=== PATIENT | male | born 1950 | race Caucasian/White ===

== ENCOUNTER 2017-11-28 08:25 | Inpatient (IN) | payer MEDICARE ==
--- NOTE | 2017-11-28 08:52 | ER Document Report ---
ED General - General Chief Complaint: Fall Stated Complaint: FALL/FACE INJURY Time Seen by Provider: 11/28/17 08:39 Notes: 66-year-old male with a history of hypertension and polio presents to the ER after a fall this morning. The patient began having slurred speech yesterday morning and was not walking right. The patient took daughter to a doctor's appointment yesterday morning and could not drive his symptoms have progressed throughout the day with slurred speech and unable to control his legs and weakness and unable to stand. The patient states he is unable to get out his words and talk. He denies any numbness on the left. Denies chest pain denies shortness of breath denies headache or blurred vision. No history of strokes in the past. TRAVEL OUTSIDE OF THE [place] IN LAST 30 DAYS: No - Related Data Allergies/Adverse Reactions: No Known Allergies Allergy (Unverified 11/28/17 08:25) Past Medical History - Social History Smoking Status: Current Some Day Smoker Family History: CVA Review of Systems - Review of Systems Cardiovascular: denies: Chest pain Respiratory: denies: Cough, Short of breath Skin: denies: Rash Neurological/Psychological: Paralysis, Speech impairment, Numbness. denies: Confusion, Lost consciousness, Headaches -: Yes All other systems reviewed and negative Physical Exam - Vital signs Vitals: Temp Pulse Resp BP Pulse Ox 97.5 F 68 18 158/81 H 96 11/28/17 08:32 11/28/17 08:32 11/28/17 08:32 11/28/17 08:32 11/28/17 08:32 - Notes Notes: GENERAL_APPEARANCE: well_nourished, alert, cooperative VITALS: reviewed, see vital signs table. HEAD: no_swelling\tenderness on the head. EYES: PERRL, EOMI, conjunctiva_clear. NOSE: no_nasal_discharge. Abrasion dorsum of nose MOUTH: (-)decreased moisture. THROAT: no_tonsilar_inflammation, no_airway_obstruction. no_lymphadenopathy NECK: supple, no_neck_tenderness, (-)thyromegaly. BACK: no_back_tenderness. CHEST_WALL: no_chest_tenderness. LUNGS: no_wheezing, no_rales, no_rhonchi, (-)accessory muscle use, good air exchange bilateral. HEART: normal_rate, normal_rhythm, normal_S1, normal_S2, (-)S3, (-)S4, no_ murmur, no_rub. ABDOMEN: normal_BS, soft, no_abd_tenderness, (-)guarding, (-)rebound, no_ organomegaly, no_abd_masses. EXTREMITIES: No edema there is asymmetric size difference due to polio on the left. SKIN: warm, dry, good_color, no_rash. MENTAL_STATUS: speech_clear, oriented_X_3, normal_affect, responds_ appropriately to questions. NEURO: Pronator drift noted on the left arm and left leg drift, the patient has a history of polio on the left leg number this may be chronic, Neg Sensory Deficits on exam, CN 2-12 intact, DTR 2+ symmetric x 4, No cerbellar signs RESULT SUMMARY: 4 points NIH Stroke Scale INPUTS: 1A: Level of consciousness > 0 = Alert; keenly responsive 1B: Ask month and age > 0 = Both questions right 1C: 'Blink eyes' & 'squeeze hands' > 0 = Performs both tasks 2: Horizontal extraocular movements > 0 = Normal 3: Visual lynn > 0 = No visual loss 4: Facial palsy > 0 = Normal symmetry 5A: Left arm motor drift > 1 = Drift, but doesn't hit bed 5B: Right arm motor drift > 0 = No drift for 10 seconds 6A: Left leg motor drift > 1 = Drift, but doesn't hit bed --some chronic weakness due to polio 6B: Right leg motor drift > 0 = No drift for 5 seconds 7: Limb Ataxia > 0 = No ataxia 8: Sensation > 0 = Normal; no sensory loss 9: Language/aphasia > 1 = Mild-moderate aphasia: some obvious changes, without significant limitation 10: Dysarthria > 1 = Mild-moderate dysarthria: slurring but can be understood 11: Extinction/inattention > 0 = No abnormality Course - Re-evaluation Re-evalutation: The patient arrives with strokelike symptoms. The patient had symptoms yesterday morning. Unknown really when last normal the day before. He is out of the window for thrombolytics. He is not a candidate for thrombolytics due to this. We will get a CT of the head if negative will get a CTA to assess for large vessel occlusion patient is even approaching getting out of the window for neuro intervention greater than 24 hours. 11/28/17 11:05 We are now out of the window for intervention. We are greater than 24 hours of symptoms. CTA of the head and neck are ordered. The patient failed his swallow study and will be given aspirin rectally. Blood pressures been fairly reasonable and he will be admitted to the hospitalist service. - Vital Signs Vital signs: Temp Pulse Resp BP Pulse Ox 97.5 F 62 17 142/73 H 95 11/28/17 08:32 11/28/17 09:00 11/28/17 10:01 11/28/17 10:01 11/28/17 10:01 - Laboratory Result Diagrams: 11/28/17 08:43 11/28/17 08:43 Laboratory results interpreted by me: 11/28/17 11/28/17 11/28/17 08:43 08:43 08:44 WBC 58.4 H* RDW 14.5 H Seg Neuts % (Manual) 12 L Lymphocytes % (Manual) 84 H Monocytes % (Manual) 2 L Abs Lymphs (Manual) 49.1 H Abs Basophils (Manual) 1.2 H Glucose 121 H POC Glucose 115 H Creatine Kinase 240 H Discharge - Discharge Clinical Impression: Acute CVA (cerebrovascular accident) Condition: Fair Disposition: ADMITTED INPATIENT Admitting Provider: Hospitalist Unit Admitted: Telemetry Referrals: TAMIKA BONILLA MD [Primary Care Provider] - Follow up as needed
[2017-11-28 09:03] LABS: HEMATOCRIT 48.5 % (37.9-51.0); HEMOGLOBIN 15.8 g/dL (13.5-17.0); MEAN CORPUSCULAR HEMOGLOBIN 30.6 pg (27.0-33.4); MEAN CORPUSCULAR HGB CONC 32.7 g/dL (32.0-36.0); MEAN CORPUSCULAR VOLUME 94 fl (80-97); PLATELET COUNT 153 10^3/uL (150-450); RED BLOOD COUNT 5.18 10^6/uL (4.35-5.55); RED CELL DISTRIBUTION WIDTH 14.5 % (11.5-14.0)
[2017-11-28 09:04] LABS: PROTHROMBIN TIME 13.7 SEC (11.4-15.4)
[2017-11-28 09:05] LABS: PARTIAL THROMBOPLASTIN TIME 28.7 SEC (23.5-35.8)
[2017-11-28 09:13] LABS: WHITE BLOOD COUNT 58.4 10^3/uL (4.0-10.5)
[2017-11-28 09:19] LABS: ALANINE AMINOTRANSFERASE 31 U/L (21-72); ALBUMIN 4.4 g/dL (3.5-5.0); ALKALINE PHOSPHATASE 57 U/L (38-126); ANION GAP 15 (5-19); ASPARTATE AMINO TRANSFERASE 30 U/L (17-59); BILIRUBIN,DIRECT 0.3 mg/dL (0.0-0.4); BILIRUBIN,TOTAL 0.9 mg/dL (0.2-1.3); BLOOD UREA NITROGEN 17 mg/dL (7-20); CALCIUM 9.6 mg/dL (8.4-10.2); CARBON DIOXIDE 26 mmol/L (22-30); CHLORIDE 103 mmol/L (98-107); CREATINE KINASE 240 U/L (55-170); GLUCOSE 121 mg/dL (75-110); POTASSIUM 4.4 mmol/L (3.6-5.0)
--- NOTE | 2017-11-28 09:19 | RADIOLOGY REPORT (SQ) ---
EXAM DESCRIPTION: CT HEAD WITHOUT COMPLETED DATE/TIME: 11/28/2017 9:09 am REASON FOR STUDY: Stroke left side weakness slurred speech COMPARISON: None. TECHNIQUE: Axial images acquired through the brain without intravenous contrast. Images reviewed wi th bone, brain and subdural windows. Additional sagittal and coronal reconstructions were generated. Images stored on PACS. All CT scanners at this facility use dose modulation, iterative reconstruction, and/or weight based d osing when appropriate to reduce radiation dose to as low as reasonably achievable (ALARA). [facility]: Dose Right [facility]: CareDose [facility]: Dose Right [facility]: Teradose 4D [facility]: [employer] RADIATION DOSE: CT Rad equipment meets quality standard of care and radiation dose reduction techniq ues were employed. CTDIvol: 53.2 mGy. DLP: 1044 mGy-cm. mGy. LIMITATIONS: None. FINDINGS: VENTRICLES: Normal size and contour. CEREBRUM: Old encephalomalacia in the anterior right frontal lobe axial images 19-23. Multiple lacun ar infarcts in the bilateral basal ganglia. Spotty chronic bifrontal and biparietal deep periventric ular white matter low attenuation from small vessel disease. No CT evidence of acute large territory ischemic change, acute intracranial hemorrhage, mass effect, or midline shift. CEREBELLUM: No masses. No hemorrhage. No alteration of density. No evidence for acute infarction. EXTRAAXIAL SPACES: No fluid collections. No masses. ORBITS AND GLOBE: No intra- or extraconal masses. Normal contour of globe without masses. CALVARIUM: No fracture. PARANASAL SINUSES: No fluid or mucosal thickening. SOFT TISSUES: No mass or hematoma. OTHER: No other significant finding. IMPRESSION: No acute findings. Old white matter chronic small vessel disease and bilateral basal ganglia infarcts. Old right fronta l cortical and subcortical white matter infarct. EVIDENCE OF ACUTE STROKE: NO. COMMENT: Quality ID # 436: Final reports with documentation of one or more dose reduction techniques (e.g., Automated exposure control, adjustment of the mA and/or kV according to patient size, use of iterative reconstruction technique) TECHNICAL DOCUMENTATION: JOB ID: [id number] [employer]- All Rights Reserved Reading location - IP/workstation name: [facility]
[2017-11-28 09:22] LABS: ABSOLUTE LYMPHOCYTES# (MANUAL) 49.1 10^3/uL (0.5-4.7); ABSOLUTE MONOCYTES # (MANUAL) 1.2 10^3/uL (0.1-1.4); BASOPHILS % (MANUAL) 2 % (0-2); EOSINOPHILS % (MANUAL) 0 % (0-6); HYPOCHROMASIA SLIGHT; LYMPHOCYTES % (MANUAL) 84 % (13-45); MONOCYTES % (MANUAL) 2 % (3-13); PLATELET COMMENT ADEQUATE; SEGMENTED NEUTROPHILS % (MAN) 12 % (42-78); SMUDGE CELLS PRESENT; TOTAL CELLS COUNTED 100
[2017-11-28 09:31] LABS: CREATINE KINASE MB 4.45 ng/mL (<4.55)
[2017-11-28 09:32] LABS: TROPONIN I < 0.012 ng/mL
[2017-11-28] MEDS ORDERED: ASPIRIN 81 MG TABLET, CHEWABLE PO ONE (09:32)
--- NOTE | 2017-11-28 09:37 | RADIOLOGY REPORT (SQ) ---
EXAM DESCRIPTION: CT CERVICAL SPINE WITHOUT COMPLETED DATE/TIME: 11/28/2017 9:09 am REASON FOR STUDY: fall COMPARISON: None. TECHNIQUE: Axial images acquired through the cervical spine without intravenous contrast. Images re viewed with lung, soft tissue and bone windows. Reconstructed coronal and sagittal MPR images review ed. Images stored on PACS. All CT scanners at this facility use dose modulation, iterative reconstruction, and/or weight based d osing when appropriate to reduce radiation dose to as low as reasonably achievable (ALARA). [facility]: Dose Right [facility]: CareDose [facility]: Dose Right [facility]: Teradose 4D [facility]: [employer] RADIATION DOSE: CT Rad equipment meets quality standard of care and radiation dose reduction techniq ues were employed. CTDIvol: 17.9 mGy. DLP: 329 mGy-cm. mGy. LIMITATIONS: None. FINDINGS: ALIGNMENT: Anatomic. MINERALIZATION: Normal. VERTEBRAL BODIES: No fractures or dislocation. DISCS: Multilevel disc space narrowing with osteophytes. At C3-4, no central stenosis, moderate righ t, mild left foraminal narrowing. At C4-5, borderline central canal narrowing, moderate bilateral foraminal narrowing. At C5-6, borderline central canal narrowing, high-grade bilateral foraminal narrowing. At C6-7, and C7-T1, no central or foraminal stenosis. FACETS, LATERAL MASSES, POSTERIOR ELEMENTS: Facet arthropathy. No fractures. No dislocation. No ac rodrigo findings. HARDWARE: None in the spine. VISUALIZED RIBS: No fractures. LUNG APICES AND SOFT TISSUES: No significant or acute findings. OTHER: No other significant finding. IMPRESSION: CHRONIC DEGENERATIVE CHANGES. NO ACUTE FINDINGS. TECHNICAL DOCUMENTATION: JOB ID: [id number] Quality ID # 436: Final reports with documentation of one or more dose reduction techniques (e.g., Au tomated exposure control, adjustment of the mA and/or kV according to patient size, use of iterative reconstruction technique) 2010 [employer]- All Rights Reserved Reading location - IP/workstation name: [email or web address]
--- NOTE | 2017-11-28 09:38 | RADIOLOGY REPORT (SQ) ---
EXAM DESCRIPTION: CHEST SINGLE VIEW COMPLETED DATE/TIME: 11/28/2017 9:20 am REASON FOR STUDY: Stroke left side weakness slurred speech COMPARISON: None. EXAM PARAMETERS: NUMBER OF VIEWS: One view. TECHNIQUE: Single frontal radiographic view of the chest acquired. RADIATION DOSE: NA LIMITATIONS: None. FINDINGS: LUNGS AND PLEURA: No opacities, masses or pneumothorax. No pleural effusion. MEDIASTINUM AND HILAR STRUCTURES: No masses. Contour normal. HEART AND VASCULAR STRUCTURES: Heart normal in size. Normal vasculature. BONES: No acute changes. Old healed left lateral rib fractures HARDWARE: None in the chest. OTHER: No other significant finding. IMPRESSION: NO ACUTE RADIOGRAPHIC FINDING IN THE CHEST. TECHNICAL DOCUMENTATION: JOB ID: [id number] [employer]- All Rights Reserved Reading location - IP/workstation name: [email or web address]
[2017-11-28] MEDS ORDERED: ASPIRIN 300 MG SUPP, RECTAL PR ONE (10:30)
[2017-11-28] MEDS ORDERED: ONDANSETRON HCL INJ/PF 4 MG/2 ML SDV IV PRN (11:05)
[2017-11-28] MEDS ORDERED: ACETAMINOPHEN 650 MG SUPP.RECT PR PRN (11:05)
[2017-11-28] MEDS ORDERED: HYDROMORPHONE HCL INJ/PF 2 MG/ML AMPULE IV PRN (11:38)
--- NOTE | 2017-11-28 12:00 | RADIOLOGY REPORT (SQ) ---
EXAM DESCRIPTION: CTA NECK; CTA HEAD COMPLETED DATE/TIME: 11/28/2017 11:24 am REASON FOR STUDY: stroke left weakness COMPARISON: CT cervical spine 11/28/2017 CT brain without contrast 11/28/2017 TECHNIQUE: Axial dynamic scanning technique with dynamic contrast enhancement through the extra-aircraft maintenance technician nial and intracranial carotid and vertebral arteries. Multiplanar reconstruction. 3-D MIPS and Vol ume-rendered images acquired at the workstation and saved to PACS. Images are reviewed in soft tis jesus, bone, lung windows. All CT scanners at this facility use dose modulation, iterative reconstruction, and/or weight based d osing when appropriate to reduce radiation dose to as low as reasonably achievable (ALARA). [facility]: Dose Right [facility]: CareDose [facility]: Dose Right [facility]: Teradose 4D [facility]: [employer] CONTRAST TYPE AND DOSE: contrast/concentration: Isovue 370.00 mg/ml; Total Contrast Delivered: 70.0 ml; Total Saline Delivered: 75.0 ml RENAL FUNCTION: Creatinine 0.72 LIMITATIONS: None. FINDINGS: AORTIC ARCH: Normal three-vessel origin. Bilateral subclavian arteries are patent. No d issection. RIGHT CERVICAL CAROTIDS: Patent common, internal and external carotid arteries without suggestion of significant stenosis or irregular plaque. No dissection. RIGHT CERVICAL VERTEBRAL: Patent. No dissection. LEFT CERVICAL CAROTIDS: Patent common, internal and external carotid arteries without suggestion of s ignificant stenosis or irregular plaque. No dissection. LEFT CERVICAL VERTEBRAL: Diffusely small, an anatomic variant. The high cervical left vertebral mattie ry is occluded INTRACRANIAL CIRCULATION: There is bilateral heavy atherosclerotic change of the parasellar carotid arteries with a least moderate parasellar carotid artery stenosis bilaterally. The para clinoid ICAs, bilateral anterior and middle cerebral arteries, bilateral posterior cerebral arteries are patent. On the right side, the distal cervical vertebral artery and intracranial vertebral artery is patent p roviding in flow to the basilar artery. On the left side, there is retrograde filling of a short seg ment of the distal left intracranial vertebral artery. Left vertebral artery as it enters the skull is occluded. This is likely chronic. Faint collateral filling of the left anterior inferior cerebel lar artery is seen. BRAIN: Again, an old right frontal cortical infarct is present, with multiple small lacune is in the basal ganglia and right and left thalamus. OTHER: 3-D reconstructions confirm findings. These results were discussed with Dr. Joiner in the emergency room. IMPRESSION: No carotid bifurcations significant stenosis Diffusely small left vertebral artery with short segment of occlusion at the high cervical/proximal i ntracranial region. This is likely chronic Heavy atherosclerotic calcification with at least 50% narrowing of the bilateral parasellar internal carotid arteries. COMMENT: Quality ID #[id number]: Measurements of distal internal carotid diameter were used as the denomina tor for stenosis measurement. TECHNICAL DOCUMENTATION: JOB ID: [id number] Quality ID # [id number]: Final reports with documentation of one or more dose reduction techniques (e.g., Au tomated exposure control, adjustment of the mA and/or kV according to patient size, use of iterative reconstruction technique) 2010 [employer] All Rights Reserved Reading location - IP/workstation name: [email or web address]
--- NOTE | 2017-11-28 12:00 | RADIOLOGY REPORT (SQ) ---
EXAM DESCRIPTION: CTA NECK; CTA HEAD COMPLETED DATE/TIME: 11/28/2017 11:24 am REASON FOR STUDY: stroke left weakness COMPARISON: CT cervical spine 11/28/2017 CT brain without contrast 11/28/2017 TECHNIQUE: Axial dynamic scanning technique with dynamic contrast enhancement through the extra-aviation technician aircraft nial and intracranial carotid and vertebral arteries. Multiplanar reconstruction. 3-D MIPS and Vol ume-rendered images acquired at the workstation and saved to PACS. Images are reviewed in soft tis jesus, bone, lung windows. All CT scanners at this facility use dose modulation, iterative reconstruction, and/or weight based d osing when appropriate to reduce radiation dose to as low as reasonably achievable (ALARA). [facility]: Dose Right [facility]: CareDose [facility]: Dose Right [facility]: Teradose 4D [facility]: [employer] CONTRAST TYPE AND DOSE: contrast/concentration: Isovue 370.00 mg/ml; Total Contrast Delivered: 70.0 ml; Total Saline Delivered: 75.0 ml RENAL FUNCTION: Creatinine 0.72 LIMITATIONS: None. FINDINGS: AORTIC ARCH: Normal three-vessel origin. Bilateral subclavian arteries are patent. No d issection. RIGHT CERVICAL CAROTIDS: Patent common, internal and external carotid arteries without suggestion of significant stenosis or irregular plaque. No dissection. RIGHT CERVICAL VERTEBRAL: Patent. No dissection. LEFT CERVICAL CAROTIDS: Patent common, internal and external carotid arteries without suggestion of s ignificant stenosis or irregular plaque. No dissection. LEFT CERVICAL VERTEBRAL: Diffusely small, an anatomic variant. The high cervical left vertebral mattie ry is occluded INTRACRANIAL CIRCULATION: There is bilateral heavy atherosclerotic change of the parasellar carotid arteries with a least moderate parasellar carotid artery stenosis bilaterally. The para clinoid ICAs, bilateral anterior and middle cerebral arteries, bilateral posterior cerebral arteries are patent. On the right side, the distal cervical vertebral artery and intracranial vertebral artery is patent p roviding in flow to the basilar artery. On the left side, there is retrograde filling of a short seg ment of the distal left intracranial vertebral artery. Left vertebral artery as it enters the skull is occluded. This is likely chronic. Faint collateral filling of the left anterior inferior cerebel lar artery is seen. BRAIN: Again, an old right frontal cortical infarct is present, with multiple small lacune is in the basal ganglia and right and left thalamus. OTHER: 3-D reconstructions confirm findings. These results were discussed with Dr. Joiner in the emergency room. IMPRESSION: No carotid bifurcations significant stenosis Diffusely small left vertebral artery with short segment of occlusion at the high cervical/proximal i ntracranial region. This is likely chronic Heavy atherosclerotic calcification with at least 50% narrowing of the bilateral parasellar internal carotid arteries. COMMENT: Quality ID #195: Measurements of distal internal carotid diameter were used as the denomina tor for stenosis measurement. TECHNICAL DOCUMENTATION: JOB ID: [id number] Quality ID # 436: Final reports with documentation of one or more dose reduction techniques (e.g., Au tomated exposure control, adjustment of the mA and/or kV according to patient size, use of iterative reconstruction technique) 2010 [employer]- All Rights Reserved Reading location - IP/workstation name: [email or web address]
--- NOTE | 2017-11-28 12:13 | PDOC H&P ---
History of Present Illness Admission Date/PCP: TAMIKA BONILLA MD History of Present Illness: MELODY MCCOY is a 66 year old male presented to the ED after a fall this morning. The patient began having slurred speech yesterday morning and was not walking right. The patient took daughter to a doctor's appointment yesterday morning and could not drive. His had to drive. His symptoms progressed throughout the day with slurred speech and unable to control his legs and weakness and unable to stand. He did not take his regular antihypertensive medications on Monday and Monday since ran short. His blood pressure was checked on Monday and was 197/86. Patient smokes one pack of cigarettes daily and he used to smoke a lot more. When he fell there was no loss of consciousness. Patient has a history of polio which affected both legs but more on the left. There is no history of diabetes. Has history of leukemia which is being monitored by his PCP. Due to patient's presentation he was deemed not to be a candidate for thrombolysis. He was administered aspirin rectally since failed swallowing check. The hospitalist service was consulted and prompted to admit. Past Medical History Cardiac Medical History: Reports: Hypertension Pulmonary Medical History: Reports: Chronic Obstructive Pulmonary Disease (COPD) EENT Medical History: Reports: None Neurological Medical History: Reports: None Endocrine Medical History: Reports: None Renal/ Medical History: Reports: None Malignancy Medical History: Reports: None GI Medical History: Reports: None Musculoskeltal Medical History: Reports: None Skin Medical History: Reports: None Psychiatric Medical History: Reports: Tobacco Dependency Traumatic Medical History: Reports: None Hematology: Reports: None Infectious Medical History: Reports: None Past Surgical History Past Surgical History: Reports: None Social History Smoking Status: Current Some Day Smoker Cigarettes Packs Per Day: 1 Frequency of Alcohol Use: Rare Hx Recreational Drug Use: No Drugs: None Hx Prescription Drug Abuse: Yes Family History Family History: CVA Parental Family History Reviewed: Yes Children Family History Reviewed: Yes Sibling(s) Family History Reviewed.: Yes Medication/Allergy Allergies/Adverse Reactions: No Known Allergies Allergy (Unverified 11/28/17 08:25) Review of Systems ROS unobtainable: Due to mental status Physical Exam Vital Signs: Temp Pulse Resp BP Pulse Ox 97.5 F 62 17 142/73 H 95 11/28/17 08:32 11/28/17 09:00 11/28/17 10:01 11/28/17 10:01 11/28/17 10:01 Intake & Output 11/27/17 11/28/17 11/29/17 06:59 06:59 06:59 Weight 64.6 kg General appearance: PRESENT: cooperative, hard of hearing, thin Head exam: PRESENT: atraumatic, normocephalic Eye exam: PRESENT: conjunctiva pink, EOMI, PERRLA Ear exam: PRESENT: normal external ear exam Mouth exam: PRESENT: moist Teeth exam: PRESENT: poor dentation Neck exam: PRESENT: full ROM. ABSENT: carotid bruit, JVD, lymphadenopathy, tenderness, thyromegaly Respiratory exam: PRESENT: clear to auscultation roman Cardiovascular exam: PRESENT: RRR. ABSENT: diastolic murmur, systolic murmur Vascular exam: PRESENT: normal capillary refill GI/Abdominal exam: PRESENT: normal bowel sounds, soft. ABSENT: tenderness Extremities exam: PRESENT: other - left leg is shorter than right leg Musculoskeletal exam: ABSENT: ambulatory Neurological exam: PRESENT: alert, awake, aphasic - there is left sided weakness Skin exam: PRESENT: abrasion - to nose bridge, other Results Laboratory Results: 11/28/17 08:43 11/28/17 08:43 11/28/17 11/28/17 08:43 08:43 WBC 58.4 H* RBC 5.18 Hgb 15.8 Hct 48.5 MCV 94 MCH 30.6 MCHC 32.7 RDW 14.5 H Plt Count 153 Seg Neutrophils % Not Reportable Lymphocytes % Not Reportable Monocytes % Not Reportable Eosinophils % Not Reportable Basophils % Not Reportable Absolute Neutrophils Not Reportable Absolute Lymphocytes Not Reportable Absolute Monocytes Not Reportable Absolute Eosinophils Not Reportable Absolute Basophils Not Reportable Sodium 144.0 Potassium 4.4 Chloride 103 Carbon Dioxide 26 Anion Gap 15 BUN 17 Creatinine 0.72 Est GFR ( Amer) > 60 Est GFR (Non-Af Amer) > 60 Glucose 121 H Calcium 9.6 Total Bilirubin 0.9 AST 30 ALT 31 Alkaline Phosphatase 57 Total Protein 7.0 Albumin 4.4 11/28/17 11/28/17 08:43 08:43 Creatine Kinase 240 H CK-MB (CK-2) 4.45 Troponin I < 0.012 Impressions: Chest X-Ray 11/28/17 08:46 IMPRESSION: NO ACUTE RADIOGRAPHIC FINDING IN THE CHEST. Head CT 11/28/17 08:46 IMPRESSION: No acute findings. Old white matter chronic small vessel disease and bilateral basal ganglia infarcts. Old right frontal cortical and subcortical white matter infarct. EVIDENCE OF ACUTE STROKE: NO. Cervical Spine CT 11/28/17 08:52 IMPRESSION: CHRONIC DEGENERATIVE CHANGES. NO ACUTE FINDINGS. Assessment & Plan - Diagnosis (1) Acute CVA (cerebrovascular accident) Is this a current diagnosis for this admission?: Yes Plan: Will order MRI of brain, Carotid Doppler and echocardiogram. Order PT/OT and speech therapy. Family aware he will need rehab. Continue aspirin 300 mgs suppository and will start Lipitor once swallowing gets cleared. Family and patient made aware about presence on old infarcts in current CT of brain. Life style modification had been encouraged including quitting smoking. (2) HTN (hypertension) Qualifiers: Hypertension type: essential hypertension Qualified Code(s): I10 - Essential (primary) hypertension Is this a current diagnosis for this admission?: Yes Plan: Will allow for permissive high blood pressure and anticipate to start antihypertensive medications in AM. (3) Tobacco abuse Is this a current diagnosis for this admission?: Yes Plan: Order nicotine patch. Educated about nicotine toxic effects including heart attack, stroke, cancer, emphysema, etc.. (4) History of poliomyelitis Is this a current diagnosis for this admission?: Yes Plan: Supportive - Time Time Spent: 30 to 50 Minutes Medications reviewed and adjusted accordingly: Yes Anticipated discharge: Acute Rehab Within: within 48 hours - Inpatient Certification Based on my medical assessment, after consideration of the patient's comorbidities, presenting symptoms, or acuity I expect that the services needed warrant INPATIENT care.: Yes I certify that my determination is in accordance with my understanding of Medicare's requirements for reasonable and necessary INPATIENT services [42 CFR 412.3e].: Yes Medical Necessity: Significant Comorbidiites Make Outpatient Treatment Too Risky , Need Close Monitoring Due to Risk of Patient Decompensation, Need For Continuous Telemetry Monitoring
[2017-11-28] MEDS ORDERED: NICOTINE 21 MG/24 HR PATCH.TD24 TD ONE (12:15)
[2017-11-28] MEDS: HEPARIN SOD (PORCINE) 5,000 UNIT/ML 1 ML SYRINGE SUBCUT SCH ×2 (12:36→21:19)
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
[2017-11-28 13:22] LABS: APPEARANCE,URINE CLEAR; BILIRUBIN,URINE NEGATIVE (NEGATIVE); COLOR,URINE YELLOW; GLUCOSE, URINE NEGATIVE (NEGATIVE); KETONES,URINE 20 mg/dL (NEGATIVE); LEUKOCYTE ESTERASE,URINE NEGATIVE (NEGATIVE); NITRITE,URINE NEGATIVE (NEGATIVE); PROTEIN,URINE NEGATIVE (NEGATIVE); URINE SPECIFIC GRAVITY 1.047; UROBILINOGEN,URINE NEGATIVE mg/dL (<2.0)
[2017-11-28] MEDS: POTASSI CL 20 MEQ/D5-1/2NS 1L 1,000 ML IV PRN (14:31)
--- NOTE | 2017-11-28 22:37 | EKG REPORT ---
SEVERITY:- NORMAL ECG - SINUS RHYTHM : Confirmed by: Boy Larry 28-Nov-2017 22:36:16
[2017-11-29] MEDS: POTASSI CL 20 MEQ/D5-1/2NS 1L 1,000 ML IV PRN ×2 (04:41→18:30)
[2017-11-29 05:13] LABS: HEMATOCRIT 44.9 % (37.9-51.0); HEMOGLOBIN 14.9 g/dL (13.5-17.0); MEAN CORPUSCULAR HEMOGLOBIN 31.2 pg (27.0-33.4); MEAN CORPUSCULAR HGB CONC 33.3 g/dL (32.0-36.0); MEAN CORPUSCULAR VOLUME 94 fl (80-97); PLATELET COUNT 132 10^3/uL (150-450); RED BLOOD COUNT 4.79 10^6/uL (4.35-5.55); RED CELL DISTRIBUTION WIDTH 14.3 % (11.5-14.0)
[2017-11-29 05:32] LABS: ANION GAP 12 (5-19); BLOOD UREA NITROGEN 12 mg/dL (7-20); CALCIUM 9.2 mg/dL (8.4-10.2); CARBON DIOXIDE 24 mmol/L (22-30); CHLORIDE 106 mmol/L (98-107); GLUCOSE 100 mg/dL (75-110); POTASSIUM 4.1 mmol/L (3.6-5.0); SODIUM 142.3 mmol/L (137-145)
[2017-11-29 05:41] LABS: ABSOLUTE LYMPHOCYTES# (MANUAL) 41.4 10^3/uL (0.5-4.7); ABSOLUTE MONOCYTES # (MANUAL) 0.5 10^3/uL (0.1-1.4); ABSOLUTE NEUTROPHILS# (MANUAL) 6.9 10^3/uL (1.7-8.2); BASOPHILS % (MANUAL) 0 % (0-2); EOSINOPHILS % (MANUAL) 1 % (0-6); LYMPHOCYTES % (MANUAL) 39 % (13-45); MONOCYTES % (MANUAL) 1 % (3-13); SEGMENTED NEUTROPHILS % (MAN) 14 % (42-78); TOTAL CELLS COUNTED 100
[2017-11-29 05:49] LABS: PLATELET COMMENT DECREASED; RBC MORPHOLOGY COMMENT NORMO-CYTIC/CHROMIC
[2017-11-29 05:51] LABS: WHITE BLOOD COUNT 49.3 10^3/uL (4.0-10.5)
[2017-11-29] MEDS: HEPARIN SOD (PORCINE) 5,000 UNIT/ML 1 ML SYRINGE SUBCUT SCH ×3 (06:29→22:11)
[2017-11-29] MEDS ORDERED: ASPIRIN 300 MG SUPP, RECTAL PR SCH (10:00)
[2017-11-29] MEDS ORDERED: (PENDING PHARMACY ID) (Citalopram Hydrobromide [Celexa 10 Mg Tablet] 10 MG) PO SCH (10:00)
[2017-11-29 10:14] LABS: CHOLESTEROL 132.61 mg/dL (0-200); TRIGLYCERIDES 97 mg/dL (<150)
[2017-11-29 10:25] LABS: DIRECT LDL 58 mg/dL (<100)
[2017-11-29] MEDS: TRAZODONE HCL 50 MG TABLET PO SCH (11:48)
[2017-11-29] MEDS: CITALOPRAM HYDROBROMIDE 20 MG TABLET PO SCH (11:48)
[2017-11-29] MEDS ORDERED: ASPIRIN 325 MG TABLET PO ONE (12:00)
[2017-11-29 14:00] LABS: PATH REVIEW PATHOLOGIST REVIEWED
[2017-11-29 14:01] LABS: PATH REVIEW PATHOLOGIST REVIEWED
--- NOTE | 2017-11-29 14:05 | PDOC PROGRESS REPORT ---
Subjective Progress Note for:: 11/29/17 Subjective:: Patient speech is sufficiently slurred as to be unintelligible. Speech therapy has cleared him for a mechanical soft diet and that is been started. PT notes were reviewed-patient is very unstable on his feet even with a front wheel walker. does not want him to go to rehab. Reason For Visit: ACUTE CVA Physical Exam Vital Signs: Temp Pulse Resp BP Pulse Ox 98.6 F 56 L 16 166/67 H 100 11/29/17 08:00 11/29/17 08:00 11/29/17 08:00 11/29/17 08:00 11/29/17 08:00 Intake & Output 11/28/17 11/29/17 11/30/17 06:59 06:59 06:59 Intake Total 1536 Output Total 625 Balance 911 Weight 141 lb 1.533 oz General appearance: PRESENT: no acute distress, thin Respiratory exam: PRESENT: clear to auscultation roman Cardiovascular exam: PRESENT: RRR GI/Abdominal exam: PRESENT: soft Neurological exam: PRESENT: alert, motor sensory deficit, other - Severely dysarthric. ABSENT: CN II-XII grossly intact - Notable left-sided facial droop Psychiatric exam: PRESENT: appropriate affect Skin exam: PRESENT: warm Results Laboratory Results: 11/29/17 04:24 11/29/17 04:24 11/29/17 11/29/17 11/29/17 04:24 04:24 04:24 WBC 49.3 H* RBC 4.79 Hgb 14.9 Hct 44.9 MCV 94 MCH 31.2 MCHC 33.3 RDW 14.3 H Plt Count 132 L Seg Neutrophils % Not Reportable Lymphocytes % Not Reportable Monocytes % Not Reportable Eosinophils % Not Reportable Basophils % Not Reportable Absolute Neutrophils Not Reportable Absolute Lymphocytes Not Reportable Absolute Monocytes Not Reportable Absolute Eosinophils Not Reportable Absolute Basophils Not Reportable Sodium 142.3 Potassium 4.1 Chloride 106 Carbon Dioxide 24 Anion Gap 12 BUN 12 Creatinine 0.71 Est GFR ( Amer) > 60 Est GFR (Non-Af Amer) > 60 Glucose 100 Calcium 9.2 Magnesium 2.3 Triglycerides 97 Cholesterol 132.61 LDL Cholesterol Direct 58 VLDL Cholesterol 19.0 HDL Cholesterol 53 11/28/17 11/28/17 15:20 20:55 Troponin I < 0.012 < 0.012 Impressions: Chest X-Ray 11/28/17 08:46 IMPRESSION: NO ACUTE RADIOGRAPHIC FINDING IN THE CHEST. Head CT 11/28/17 08:46 IMPRESSION: No acute findings. Old white matter chronic small vessel disease and bilateral basal ganglia infarcts. Old right frontal cortical and subcortical white matter infarct. EVIDENCE OF ACUTE STROKE: NO. Cervical Spine CT 11/28/17 08:52 IMPRESSION: CHRONIC DEGENERATIVE CHANGES. NO ACUTE FINDINGS. Head CTA 11/28/17 09:31 IMPRESSION: No carotid bifurcations significant stenosis Diffusely small left vertebral artery with short segment of occlusion at the high cervical/proximal intracranial region. This is likely chronic Heavy atherosclerotic calcification with at least 50% narrowing of the bilateral parasellar internal carotid arteries. Neck CTA 11/28/17 09:31 IMPRESSION: No carotid bifurcations significant stenosis Diffusely small left vertebral artery with short segment of occlusion at the high cervical/proximal intracranial region. This is likely chronic Heavy atherosclerotic calcification with at least 50% narrowing of the bilateral parasellar internal carotid arteries. KUB X-Ray 11/28/17 12:06 IMPRESSION: Nonobstructive bowel gas pattern Small metallic foreign body in the right upper quadrant soft tissues. No MRI Assessment & Plan - Diagnosis (1) Acute CVA (cerebrovascular accident) Is this a current diagnosis for this admission?: Yes Plan: He is very resistant to going to rehab, but given the severity of his symptoms as noted in the physical, occupational, and speech therapy evaluations I am rather concerned about that. For now we will see how he does with the diet and how he progresses. (2) HTN (hypertension) Qualifiers: Hypertension type: essential hypertension Qualified Code(s): I10 - Essential (primary) hypertension Is this a current diagnosis for this admission?: Yes Plan: Resume home medications (3) History of poliomyelitis Is this a current diagnosis for this admission?: Yes Plan: He has significant physical impairment at baseline, which will complicate his rehab (4) Tobacco abuse Is this a current diagnosis for this admission?: Yes Plan: Nicotine replacement. Strongly encouraged to quit (5) CLL (chronic lymphocytic leukemia) Is this a current diagnosis for this admission?: No Plan: Stable. Patient is not undergoing treatment
[2017-11-29] MEDS ORDERED: NICOTINE 21 MG/24 HR PATCH.TD24 TD ONE (15:00)
--- NOTE | 2017-11-29 21:19 | XCELERA REPORT ---
[address] [address] Transthoracic Echocardiogram Report Name: MELODY MCCOY Age: 66 yrs Gender: Male : 1950 Patient Status: Inpatient Patient Location: [address] [place] [address] Study Date: 11/29/2017 01:10 PM Height: 71 in Weight: 142 lb BSA: 1.8 m2 Procedure: A complete two-dimensional transthoracic echocardiogram was performed (2D, M-mode, spectral and color flow Doppler). The study was technically adequate with some images being suboptimal in quality. Reason For Study: CVA Ordering Physician: EMILIO SEN Performed By: Parisa Buckner Interpretation Summary The left ventricular ejection fraction is normal. There is mild concentric left ventricular hypertrophy. The left ventricle is grossly normal size. Doppler measurements suggest pseudonormalized left ventricular relaxation, which is associated with grade II/IV or mild to moderate diastolic dysfunction Wall motion cannot be accurately commented on, but no definite regional wall motion abnormalities noted. The right ventricular systolic function is normal. The right ventricle is grossly normal size. The left atrial size is normal. The right atrium is normal. There is a trace amount of mitral regurgitation There is no mitral valve stenosis. No aortic regurgitation is present. There is no aortic valve stenosis There is a mild amount of tricuspid regurgitation Right ventricular systolic pressure is at the upper limits of normal The aortic root is not well visualized. The inferior vena cava was not visualized There is no pericardial effusion. No definite cardiac source of CVA/TIA noted on this particular trans- thoracic study. Consider MARLI if clinically indicated. May consider mobile cardiac telemetry monitoring (MCT) for ruling out transient AFIB. MMode/2D Measurements & Calculations RVDd: 2.7 cm LVIDd: 4.3 cm FS: 29.2 % Ao root diam: 3.1 cm IVSd: 1.0 cm LVIDs: 3.0 cm EDV(Teich): 82.2 ml LVPWd: 1.0 cm ESV(Teich): 35.9 ml Ao root area: 7.5 cm2 EF(Teich): 56.3 % Doppler Measurements & Calculations MV E max katherine: MV dec slope: Ao V2 max: LV V1 max P.3 cm/sec 113.9 cm/sec 4.4 mmHg MV A max katherine: 246.0 cm/sec2 Ao max PG: LV V1 max: 88.7 cm/sec MV dec time: 5.2 mmHg 104.9 cm/sec MV E/A: 0.92 0.33 sec PA V2 max: TR max katherine: 107.2 cm/sec 180.4 cm/sec PA max PG: TR max P.0 mmHg 4.6 mmHg Left Ventricle The left ventricle is grossly normal size. There is mild concentric left ventricular hypertrophy. The left ventricular ejection fraction is normal. Doppler measurements suggest pseudonormalized left ventricular relaxation, which is associated with grade II/IV or mild to moderate diastolic dysfunction. Wall motion cannot be accurately commented on, but no definite regional wall motion abnormalities noted. Right Ventricle The right ventricle is grossly normal size. There is normal right ventricular wall thickness. The right ventricular systolic function is normal. Atria The right atrium is normal. The left atrial size is normal. Interarterial septum not well visualized and not well dopplered. Cannot comment on ASD/PFO presence. Mitral Valve The mitral valve leaflets are sclerotic, but show no functional abnormalities. There is no mitral valve stenosis. There is a trace amount of mitral regurgitation. Aortic Valve The aortic valve is grossly normal. There is no aortic valve stenosis. No aortic regurgitation is present. Tricuspid Valve The tricuspid valve is not well visualized, but is grossly normal. There is no tricuspid stenosis. There is a mild amount of tricuspid regurgitation. Right ventricular systolic pressure is at the upper limits of normal. Pulmonic Valve The pulmonic valve is not well visualized. Great Vessels The aortic root is not well visualized. The inferior vena cava was not visualized. Effusions There is no pericardial effusion. Incidental Findings No definite cardiac source of CVA/TIA noted on this particular trans- thoracic study. Consider MARLI if clinically indicated. May consider mobile cardiac telemetry monitoring (MCT) for ruling out transient AFIB. : EMILIO SEN > Boy Larry
[2017-11-29] MEDS: ATORVASTATIN CALCIUM 40 MG TABLET PO SCH (22:11)
[2017-11-30] MEDS ORDERED: METOPROLOL TARTRATE 50 MG TABLET PO ONE (04:00)
[2017-11-30 05:11] LABS: HEMATOCRIT 44.4 % (37.9-51.0); HEMOGLOBIN 15.1 g/dL (13.5-17.0); MEAN CORPUSCULAR HEMOGLOBIN 31.5 pg (27.0-33.4); MEAN CORPUSCULAR HGB CONC 33.9 g/dL (32.0-36.0); MEAN CORPUSCULAR VOLUME 93 fl (80-97); PLATELET COUNT 134 10^3/uL (150-450); RED BLOOD COUNT 4.78 10^6/uL (4.35-5.55); RED CELL DISTRIBUTION WIDTH 14.1 % (11.5-14.0)
[2017-11-30 05:33] LABS: ANION GAP 10 (5-19); BLOOD UREA NITROGEN 11 mg/dL (7-20); CALCIUM 9.4 mg/dL (8.4-10.2); CARBON DIOXIDE 23 mmol/L (22-30); CHLORIDE 108 mmol/L (98-107); GLUCOSE 136 mg/dL (75-110); POTASSIUM 4.3 mmol/L (3.6-5.0)
[2017-11-30 05:45] LABS: ABSOLUTE LYMPHOCYTES# (MANUAL) 39.5 10^3/uL (0.5-4.7); ABSOLUTE NEUTROPHILS# (MANUAL) 7.5 10^3/uL (1.7-8.2); BASOPHILS % (MANUAL) 0 % (0-2); EOSINOPHILS % (MANUAL) 0 % (0-6); LYMPHOCYTES % (MANUAL) 80 % (13-45); MONOCYTES % (MANUAL) 0 % (3-13); SEGMENTED NEUTROPHILS % (MAN) 16 % (42-78); TOTAL CELLS COUNTED 100
[2017-11-30 05:46] LABS: PLATELET COMMENT DECREASED; RBC MORPHOLOGY COMMENT NORMO-CYTIC/CHROMIC; SMUDGE CELLS PRESENT
[2017-11-30] MEDS: HEPARIN SOD (PORCINE) 5,000 UNIT/ML 1 ML SYRINGE SUBCUT SCH ×3 (05:59→22:05)
[2017-11-30] MEDS: BENAZEPRIL HCL 5 MG TABLET PO SCH (08:48)
[2017-11-30] MEDS: TRAZODONE HCL 50 MG TABLET PO SCH (08:48)
[2017-11-30] MEDS: CITALOPRAM HYDROBROMIDE 20 MG TABLET PO SCH (08:48)
[2017-11-30] MEDS: ASPIRIN 325 MG TABLET PO SCH (08:49)
[2017-11-30] MEDS: NICOTINE 21 MG/24 HR PATCH.TD24 TD SCH (08:51)
[2017-11-30] MEDS ORDERED: METOPROLOL TARTRATE 50 MG TABLET PO SCH (10:00)
--- NOTE | 2017-11-30 16:24 | PROGRESS NOTE E ---
Progress Note NAME: MELODY MCCOY : 1950 AGE: 66Y DATE: 11/30/2017 ROOM: 308 SUBJECTIVE: The patient is currently lying in bed. The patient is adamantly refusing to go to rehab. The patient has been seen by Physical Therapy, and given that the patient is refusing SNF the recommendation is for home health physical therapy with a front-wheeled walker upon discharge. The patient is quite weak and a very high risk for falls. The patient denies any deficit. The patient also denies any difficulty with swallowing, and this denial is what is most concerning regarding the patient's overall prognosis. The patient had no reported episodes of vomiting nor diarrhea. The patient does not voice any other concerns at this time. REVIEW OF SYSTEMS: The rest of the review of systems is negative. MEDICATIONS: Medications have been reviewed. OBJECTIVE: GENERAL: The patient is a 66-year-old male who is awake and alert. He is oriented to person, place, time, situation. He is verbal, conversational, does not appear to be in any acute distress. VITAL SIGNS: As follows: Temperature is 98.3, pulse 58, respirations 18, blood pressure is 130/82, oxygen saturation is 100% on room air. SKIN: Warm and dry. No rash, not diaphoretic. HEENT: Pupils equal, round, reactive to light and accommodation. Conjunctiva is pink. There is no evidence of JVP. CARDIOVASCULAR: Heart is regular. There is no murmur or rub. CHEST: Clear, symmetrical, unlabored. ABDOMEN: Soft, nontender, nondistended. BACK: No CVA tenderness or sacral edema. EXTREMITIES: No clubbing, cyanosis, edema. PSYCHIATRIC: The patient is very easily agitated. DIAGNOSTICS: Lab values are as follows. Hematology obtained on 11/30/2017: WBCs are 4.7, hemoglobin is 15.1, hematocrit is 44.4, platelet count is 134,000. Chemistry obtained on 11/30/2017: Sodium is 141, potassium 3.3, chloride is 108, carbon dioxide is 23, BUN 11, creatinine is 0.64, glucose 136, calcium is 9.4, magnesium is 2.2. Triglycerides are 97, cholesterol 132, LDL 58, VLDL is 19, HDL is 53. IMPRESSION AND PLAN: 1. ACUTE CEREBROVASCULAR ACCIDENT. The patient is adamantly refusing to go to rehab. The best we can get out of the patient is home health with physical therapy. Will plan to do this tomorrow. 2. HYPERTENSION. Resume the patient's home medication. 3. HISTORY OF POLIOMYELITIS FURTHER IMPAIRING THE PATIENT'S BASELINE. 4. TOBACCO DEPENDENCY, CONTINUOUS. Will continue p.r.n. nicotine patch. Have spent 3 minutes discussing smoking cessation education. The patient declines any pharmacological intervention at this time. 5. CHRONIC LYMPHOCYTIC LEUKEMIA. This is stable. The patient is not undergoing any treatment. DISPOSITION: THE PATIENT IS A FULL CODE. Pending the patient's symptomatology and diagnostic findings, will re-evaluate in the a.m. The patient can be downgraded to a medical bed. Time spent on this followup, including assessment/plan, physical examination, patient education, review of records, is 25 minutes. DICTATING PHYSICIAN: ARMEN ROJAS [id number] PHY#: [id number] ID: [id number] JOB#: [id number] ACCT: [id number] cc: >
[2017-11-30] MEDS: METOPROLOL TARTRATE 50 MG TABLET PO SCH (17:33)
[2017-11-30] MEDS: ATORVASTATIN CALCIUM 40 MG TABLET PO SCH (22:05)
[2017-12-01 04:40] LABS: HEMATOCRIT 45.9 % (37.9-51.0); HEMOGLOBIN 15.1 g/dL (13.5-17.0); MEAN CORPUSCULAR VOLUME 94 fl (80-97); PLATELET COUNT 129 10^3/uL (150-450); RED BLOOD COUNT 4.89 10^6/uL (4.35-5.55); RED CELL DISTRIBUTION WIDTH 14.4 % (11.5-14.0)
[2017-12-01 04:55] LABS: ANION GAP 12 (5-19); BLOOD UREA NITROGEN 20 mg/dL (7-20); CALCIUM 9.2 mg/dL (8.4-10.2); CARBON DIOXIDE 24 mmol/L (22-30); CHLORIDE 107 mmol/L (98-107); GLUCOSE 121 mg/dL (75-110); POTASSIUM 4.4 mmol/L (3.6-5.0)
[2017-12-01 05:28] LABS: WHITE BLOOD COUNT 53.4 10^3/uL (4.0-10.5)
[2017-12-01 05:30] LABS: ABSOLUTE LYMPHOCYTES# (MANUAL) 49.7 10^3/uL (0.5-4.7); ABSOLUTE NEUTROPHILS# (MANUAL) 2.7 10^3/uL (1.7-8.2); BASOPHILS % (MANUAL) 0 % (0-2); EOSINOPHILS % (MANUAL) 2 % (0-6); LYMPHOCYTES % (MANUAL) 91 % (13-45); MONOCYTES % (MANUAL) 0 % (3-13); SEGMENTED NEUTROPHILS % (MAN) 5 % (42-78); TOTAL CELLS COUNTED 100
[2017-12-01 05:31] LABS: PLATELET COMMENT DECREASED; RBC MORPHOLOGY COMMENT NORMO-CYTIC/CHROMIC
[2017-12-01] MEDS: HEPARIN SOD (PORCINE) 5,000 UNIT/ML 1 ML SYRINGE SUBCUT SCH (06:01)
--- NOTE | 2017-12-01 09:09 | Physician Advisory Note ---
Physician Advisor ProgressNote .: [facility] I have reviewed the medical record for this patient. Physician Advisor Statement: Please consider documenting, if you agree: 1. "Chronic diastolic CHF" (if pt has never had s/s from diastolic dysfunction , then it's still called CHF by current classification system, just called "stage B CHF" instead of "stage C CHF" (which has sx in past &/or present) 2. "Acute Rt-sided thrombotic [or embolic, or other etiology] ___ artery* CVA with cerebral infarction, with Lt nondominant hemiparesis & dysarthria, [ resolved or improved or persistent] " Thanks! CK
[2017-12-01] MEDS: ASPIRIN 325 MG TABLET PO SCH (09:36)
[2017-12-01] MEDS: BENAZEPRIL HCL 5 MG TABLET PO SCH (09:37)
[2017-12-01] MEDS: TRAZODONE HCL 50 MG TABLET PO SCH (09:37)
[2017-12-01] MEDS: CITALOPRAM HYDROBROMIDE 20 MG TABLET PO SCH (09:38)
[2017-12-01] MEDS: METOPROLOL TARTRATE 50 MG TABLET PO SCH (09:38)
[2017-12-01] MEDS: NICOTINE 21 MG/24 HR PATCH.TD24 TD SCH (09:40)
[2017-12-01 13:58] VITALS: BP 127/78
--- NOTE | 2017-12-02 11:00 | DISCHARGE SUMMARY E ---
Discharge Summary NAME: MELODY MCCOY : 1950 AGE: 66Y ADMITTED: 11/28/2017 DISCHARGED: 12/01/2017 CODE STATUS: FULL CODE. PRIMARY CARE PROVIDER: Jorge Maravilla DISCHARGE DIAGNOSES: Includes: 1. Acute right-sided ischemic cerebrovascular accident with left hemiparesis and dysarthria. 2. Hypertension. 3. Poliomyelitis. 4. Tobacco dependency, continuous. 5. Chronic lymphatic leukemia. 6. Diastolic dysfunction without evidence of overt failure. 7. Carotid stenosis. DISCHARGE MEDICATIONS: Include: 1. Aspirin 325 mg p.o. daily. 2. Lipitor 40 mg p.o. q. hour of sleep. 3. Lotensin 5 mg p.o. daily. 4. Celexa 10 mg p.o. daily. 5. Lopressor 25 mg p.o. b.i.d. 6. Trazodone 50 mg p.o. daily. DIET: Heart healthy. Mechanical cut meats. ACTIVITY: Home health physical therapy. The patient has refused inpatient rehab. CONDITION: Fair. DIAGNOSTICS: Lab values are as follows: Hematology obtained on 12/01/2017: WBCs are 53.4, hemoglobin is 15.1, hematocrit is 45.9, platelet count is 129,000. Coagulation obtained on 11/28/2017: PT is 13.7, INR is 1. Chemistry obtained on 12/01/2017: Sodium is 143, potassium 4.4, chloride is 107, carbon dioxide 24, BUN 20, creatinine is 0.78. Glucose 121, calcium is 9.2, magnesium is 2.2. Triglycerides are 97, cholesterol 132, LDL 58, VLDL is 19, HDL is 53. Troponin is 0.012. Bilirubin is 0.9. AST 30, ALT is 31, Alk phos 57. Total protein 7.0, albumin 4.4. Urinalysis obtained on 11/28/2017: Color yellow, appearance clear. PH is 5.0, specific gravity is 1.047. Protein negative, glucose negative, ketones 20, occult blood negative, nitrite negative, bilirubin negative, urobilinogen is negative, leukocyte esterase is negative. WBCs 1, RBCs 2, epithelial squamous cells less than 1, mucus rare, ascorbic acid is negative. Chest x-ray obtained on 11/28/2017 reveals no acute radiographic findings of the chest. Head CT obtained on 11/28/2017 reveals no acute findings or white matter chronic small vessel disease and bilateral basal ganglia infarct, old right frontal cortical and subcortical white matter infarct. Cervical spine CT obtained on 11/28/2017 reveals chronic degenerative changes, no acute findings. Head CTA obtained on 11/28/2017 reveals no carotid bifurcation, significant stenosis, diffusely small left vertebral artery short segment of occlusion in the high cervical proximal intracranial region, which appears chronic heavy atherosclerotic calcification with at least 50% narrowing of the bilateral parasellar internal carotid arteries. Neck CTA obtained on 11/28/2017 as per the above. KUB obtained on 11/28/2017 reveals nonobstructive bowel gas pattern with small metallic foreign body of the right quadrant soft tissues. HISTORY OF PRESENT ILLNESS: The patient is a 66-year-old male with a past medical history of chronic lymphatic leukemia, not on any current treatment, overall stable. The patient presented to the emergency department with a chief complaint of fall. The patient began having slurred speech 24 hours prior to presentation and felt he was not walking right. The patient had his daughter to take him to his doctor's appointment because he could not drive. The patient stated that his symptoms progressed throughout the day and his slurring speech had got worse and unable to control, his legs with weakness and inability to stand. The patient had not taken his regular medications because he had ran out. His blood pressure was found to be 197/86. The patient, who smokes about a pack of cigarettes a day, had not felt like smoking as well. When the patient fell, he denied any loss of consciousness, just stated that he had lost his balance and felt quite weak. The patient's presentation is somewhat skewed by the fact that he does have poliomyelitis, which affects both legs. There is no history of diabetes. Due to the patient's presentation, he was not deemed to be a candidate for thrombolysis and was administered aspirin regularly and was referred to the hospitalist for admission and management. HOSPITAL COURSE: The patient was admitted to continuous telemetry unit. The patient underwent imaging, including echocardiogram, which found him to have some diastolic dysfunction. Additionally, the patient was started on aspirin, statin therapy, as well as his antihypertensive medications. The patient did have a CTA of the head and neck, which was consistent with a noncritical carotid stenosis. The patient was highly encouraged to go to rehab given his presentation and evaluation findings by physical therapy. However, the patient adamantly refused this, but is agreeable to home health physical therapy. The patient was seen and evaluated by speech therapy and recommendations have been made for mechanical soft cut meats. The patient, who is at a risk of aspiration, had shown no overt evidence of aspiration during his course. The patient voices complete symptom resolution and feels he is at his baseline, although assessment findings do reveal the patient to still be quite weak, but again, the patient is agreeable to outpatient physical therapy. PHYSICAL EXAMINATION: GENERAL: On examination, the patient is a well-developed, well-nourished 66-year-old male who is awake, alert. He is oriented to person, place, time, and situation. He is verbal, although does have some dysarthria. He does not appear to be distressed. VITAL SIGNS: Temperature is 98.2, pulse 58, respirations 16, blood pressure is 127/78, oxygen saturation is 95% on room air. SKIN: Warm and dry. No rash. He is not diaphoretic. HEENT: Pupils equal, round, and reactive to light and accommodation. Conjunctiva is pink. No evidence of JVP. CARDIOVASCULAR SYSTEM: Heart is regular. There is no murmur or rub. CHEST: Clear, symmetrical, unlabored. ABDOMEN: Soft, nontender, nondistended. BACK: No CVA tenderness or sacral edema. EXTREMITIES: No clubbing, cyanosis, edema. PSYCHIATRIC: Appropriate affect, pleasant mood. DISCHARGE PLANNING: The patient is advised to follow up with his primary care provider for hospital followup. The patient is agreeable to follow up with Vascular Surgery given his findings of carotid stenosis. However, the patient would like to get the referral through his primary care provider. This has been stressed to the patient. Time spent on this discharge including assessment, plan, physical examination, patient education, and review of records is 25 minutes. DICTATING PHYSICIAN: ARMEN ROJAS NP [id number] PHY#: [id number] ID: [id number] JOB#: [id number] ACCT: [id number] cc:ARMEN ROJAS NP [employer], > [facility] [place] [facility]
== END 2017-12-01 14:30 | disposition home health service (06) | DRG 65 ==
LOC: ER 08:25 → EH 12:11 → 3N 14:01
PROVIDERS: ADMIT Internal Medicine; ATTEND Internal Medicine
DX: I63.9 Cerebral infarction, unspecified (principal); G81.94 Hemiplegia, unspecified affecting left nondominant side; C91.10 Chronic lymphocytic leukemia of B-cell type not having achieved remission; I10 Essential (primary) hypertension; R47.1 Dysarthria and anarthria; R47.81 Slurred speech; J44.9 Chronic obstructive pulmonary disease, unspecified; F17.210 Nicotine dependence, cigarettes, uncomplicated; Z86.12 Personal history of poliomyelitis
CPT/HCPCS: 36415; 70450; 70496; 70498; 71045; 72125; 74018; 80048; 80053; 80061; 81001; 82550; 82553; 82962; 83735; 84484; 85025; 85610; 85730; 93005; 93010; 93306; 99285; G8978-GP; G8979-GP; G8987-GO; G8988-GO; G8996-GN; G8997-GN; G8998-GN; J1644; J3480; J3490

== ENCOUNTER 2019-12-30 06:43 | Day surgery (SDC) | payer MEDICARE, MEDICAID ==
[2019-12-30] MEDS ORDERED: PROPOFOL INJ 200 MG/20 ML VIAL IV ONE (07:00)
[2019-12-30] MEDS ORDERED: SIMETHICONE 80 MG TAB.CHEW PO PRN (09:55)
[2019-12-30] MEDS ORDERED: DEXTROSE 5%-1/2 NORMAL SALINE 1,000 ML IV PRN (09:55)
[2019-12-30] MEDS ORDERED: ACETAMINOPHEN 325 MG TABLET PO PRN (09:55)
[2019-12-30] MEDS ORDERED: PROMETHAZINE HCL INJ 25 MG/1 ML VIAL INJ PRN (09:56)
[2019-12-30 10:34] VITALS: BP 167/89
--- NOTE | 2019-12-30 11:31 | Operative Report ---
Operative Report DATE OF SURGERY: 12/30/19 Operative Report: The risk, benefits and alternatives of the procedure including the risk of bleeding, perforation requiring surgery have been explained to the patient in detail and informed consent has been obtained. Patient is taken back to the operating room and placed in a left, lateral decubital position. Timeout was called. Propofol medication is administered. Rectal examination is done which did not reveal any masses, tears or fissures. An Olympus videoscope was introduced into the patient's rectum. Scope was then carefully advanced all the way to the cecum. Cecum was identified by the usual anatomical landmarks including the ileocecal valve as well as the appendiceal office. Photodocumentation was obtained. Scope was then sequentially pulled back via the various segments of the colon including the ascending colon, hepatic flexure, transverse colon, splenic flexure, descending colon finally into the rectosigmoid portions of the colon. Retroflexion maneuver is performed. PREOPERATIVE DIAGNOSIS: Iron deficiency anemia rule out GI bleed. Gastroesophageal reflux disease POSTOPERATIVE DIAGNOSIS: Biopsies in the small intestine to rule out celiac sprue. Biopsies obtained in the gastric pouch status post previous [place] rule out H. pylori. Schatzki's ring status post breakage. Right-sided colon biopsy status post biopsy rule out collagenous colitis OPERATION: Colonoscopy with biopsy. EGD with biopsy SURGEON: ANTONY RICE ANESTHESIA: LMAC TISSUE REMOVED OR ALTERED: As noted above. COMPLICATIONS: None. ESTIMATED BLOOD LOSS: None. INTRAOPERATIVE FINDINGS: As noted above. PROCEDURE: Patient tolerated the procedure well. No immediate postprocedure complications are noted. Patient is discharged in good condition. Discharge date 12/30/2019. Discharge diet: Regular. Discharge activity: Regular. 2 to 3-week follow-up to discuss findings. Patient is instructed to call the office or proceed to the emergency room should there be any further problems or questions. Wait on the pathology.
--- NOTE | 2019-12-31 20:51 | Operative Report ---
Operative Report DATE OF SURGERY: 12/30/19 Operative Report: This dictation is to correct previous dictation and will superseded. Risk benefits alternatives of the procedure including risk of bleeding, perforation requiring surgery have been explained to the patient in detail and informed consent has been obtained. Patient is taken back to the operating room and placed in left, lateral decubital position. Timeout was called. Propofol medication is administered. Rectal examination is done which did not reveal any masses, tears or fissures. An Olympus full scope was introduced into the patient's rectum. Scope was then carefully advanced all the way to the cecum. Cecum was identified by the usual anatomical landmarks including the ileocecal valve as well as the appendiceal office. Photodocumentation is obtained. Scope was then sequentially pulled back via the rest segments of the colon including the ascending colon, hepatic flexure, transverse colon, splenic flexure, descending colon and finally into the rectosigmoid portions of the colon. Retroflexion maneuvers performed. PREOPERATIVE DIAGNOSIS: Colorectal cancer screening POSTOPERATIVE DIAGNOSIS: Ascending colon polyp was removed via snare polypectomy and retrieved OPERATION: Colonoscopy with biopsy SURGEON: ANTONY RICE ANESTHESIA: LMAC TISSUE REMOVED OR ALTERED: As noted above. COMPLICATIONS: None. ESTIMATED BLOOD LOSS: None. INTRAOPERATIVE FINDINGS: As noted above. PROCEDURE: Patient tolerated the procedure well. No immediate postprocedure complications are noted. Patient is discharged in good condition. Discharge date 12/30/2019. Discharge diet: Regular. Discharge activity: Regular. 2 to 3-week follow-up to discuss findings. Patient is instructed call the office or proceed to the emergency room should there be any further problems or questions. Wait on the pathology. 3-year surveillance colonoscopy.
== END 2019-12-30 10:30 | disposition home or self-care (01) ==
LOC: OROUT 06:43
PROVIDERS: ATTEND Internal Medicine Gastroenterology
DX: Z12.11 Encounter for screening for malignant neoplasm of colon (principal); D12.3 Benign neoplasm of transverse colon; K22.2 Esophageal obstruction; K52.9 Noninfective gastroenteritis and colitis, unspecified; Z03.818 Encounter for observation for suspected exposure to other biological agents ruled out; D50.9 Iron deficiency anemia, unspecified; K21.9 Gastro-esophageal reflux disease without esophagitis; Z86.73 Personal history of transient ischemic attack (TIA), and cerebral infarction without residual deficits; E11.9 Type 2 diabetes mellitus without complications; I25.10 Atherosclerotic heart disease of native coronary artery without angina pectoris; I10 Essential (primary) hypertension; C95.90 Leukemia, unspecified not having achieved remission
CPT/HCPCS: 45380; 88305 ×2; U0003; J2704; C9803; 811; 87635

== ENCOUNTER 2020-02-29 08:29 | Emergency (ER) | payer MEDICARE, MEDICAID ==
[2020-02-29 08:35] VITALS: BP 139/69
== END 2020-02-29 08:30 | disposition left against medical advice (07) ==
LOC: ER 08:29
DX: Z53.21 Procedure and treatment not carried out due to patient leaving prior to being seen by health care provider (principal)